=== PATIENT | female | born 1990 | race Caucasian/White ===

== ENCOUNTER 2022-03-17 20:29 | Emergency (ER) | payer MEDICARE, OTHER, MEDICAID ==
[2022-03-17] MEDS ORDERED: Ondansetron 4 MG Tab.DIS PO ONE (21:46)
[2022-03-17] MEDS ORDERED: Ketorolac 60 MG/2 ML SDV IM ONE (21:46)
== END 2022-03-17 23:00 | disposition home or self-care (01) ==
LOC: JD.ED 20:29
DX: S42.402A Unspecified fracture of lower end of left humerus, initial encounter for closed fracture (principal); Z88.2 Allergy status to sulfonamides; W18.39XA Other fall on same level, initial encounter
CPT/HCPCS: 29105; 73030; 73060; 73080; 96372; 99283; A9270; J1885; 29125; 99282

== ENCOUNTER 2022-09-29 10:28 | Day surgery (SDC) | payer MEDICARE, MEDICAID ==
[~2022-09-29 10:28] MED LIST: Acetaminophen 325 MG Tab PO SCH; Gabapentin 300 MG Cap PO SCH
[2022-09-29] MEDS ORDERED: Lidocaine 1%/Sod Bicarbonate in NS 8.4% 1 ML Syringe IDERM PRN (10:30)
[2022-09-29] MEDS ORDERED: Lactated Ringers 1,000 ML IV SCH (10:30)
[2022-09-29] MEDS ORDERED: metroNIDAZOLE/Normal Saline 500 MG in Premix Bag 1 BAG IV SCH (11:00)
[2022-09-29] MEDS ORDERED: Bupivacaine 0.5%/EPINEPHrine 1:200,000 50 ML MDV ONE (11:12)
[2022-09-29] MEDS ORDERED: Lidocaine 1% 10 ML MDV ONE (11:12)
[2022-09-29] MEDS ORDERED: Lidocaine 1% with EPINEPHrine 1:100,000 20 ML MDV ONE (11:15)
[2022-09-29] MEDS ORDERED: metroNIDAZOLE/Normal Saline 100 ML ONE (11:30)
[2022-09-29] MEDS ORDERED: Rocuronium 50 MG/5 ML Vial ONE (11:44)
[2022-09-29] MEDS ORDERED: ceFAZolin 2 GM Vial ONE (11:44)
[2022-09-29] MEDS ORDERED: Propofol 200 MG/20 ML SDV ONE (11:44)
[2022-09-29] MEDS ORDERED: fentaNYL 100 MCG/2 ML SDV ONE ×3 (11:44→14:06)
[2022-09-29] MEDS ORDERED: Ondansetron 4 MG/2 ML SDV ONE (11:44)
[2022-09-29] MEDS ORDERED: Ketorolac 30 MG/ML SDV ONE (11:44)
[2022-09-29] MEDS ORDERED: Lidocaine 1% 2 ML ONE (11:44)
[2022-09-29] MEDS ORDERED: Scopolamine 1.5 MG Transdermal Patch TRDERM SCH (12:36)
[2022-09-29] MEDS ORDERED: Midazolam 1 MG/ML 2 ML SDV ONE (12:37)
[2022-09-29] MEDS ORDERED: fentaNYL 100 MCG/2 ML SDV IVPUSH PRN (13:14)
[2022-09-29] MEDS ORDERED: Ondansetron 4 MG/2 ML SDV IVPUSH PRN (13:14)
[2022-09-29] MEDS ORDERED: HYDROmorphone 0.5 MG/0.5 ML Syringe IVPUSH PRN (13:14)
[2022-09-29] MEDS ORDERED: Dexamethasone 4 MG/ML 5 ML MDV ONE (13:18)
[2022-09-29] MEDS ORDERED: HYDROmorphone 0.5 MG/0.5 ML Syringe ONE (13:32)
[2022-09-29] MEDS ORDERED: Lactated Ringers 1,000 ML ONE (13:33)
[2022-09-29] MEDS ORDERED: Neostigmine Methylsulfate 10 MG/10 ML MDV ONE (13:54)
[2022-09-29] MEDS ORDERED: Acetaminophen/oxyCODONE 325-5 MG Tab PO PRN (15:20)
[2022-09-29] MEDS ORDERED: Sodium Chloride 0.9% 10 ML Syringe FLUSH SCH (21:00)
== END 2022-09-29 16:55 | disposition home or self-care (01) ==
LOC: JD.SDS 10:28
PROVIDERS: ATTEND Surgery
DX: K63.2 Fistula of intestine (principal); K21.9 Gastro-esophageal reflux disease without esophagitis; F32.A Depression, unspecified; I10 Essential (primary) hypertension; G43.909 Migraine, unspecified, not intractable, without status migrainosus; Z88.2 Allergy status to sulfonamides; Z79.899 Other long term (current) drug therapy; Z87.891 Personal history of nicotine dependence
CPT/HCPCS: 44650; A9270; J0690; J1100; J1170; J1885; J2250; J2405; J2704; J2710; J3010; J3490; J7120; 00840

== ENCOUNTER 2024-01-06 23:02 | Emergency (ER) | payer MEDICARE, MEDICAID ==
[2024-01-06] MEDS: Sodium Chloride 0.9% 10 ML Syringe FLUSH PRN (23:10)
[2024-01-06 23:26] LABS: BASOPHILS PERCENT AUTO 0.3 % (0.0-1.0); EOSINOPHILS ABSOLUTE AUTO 0.1 K/mm3 (0.0-0.4); EOSINOPHILS PERCENT AUTO 0.5 % (0.0-6.0); HEMATOCRIT 46.9 % (37.0-47.0); HEMOGLOBIN 15.3 gm/dl (12.0-16.0); IMMATURE GRAN ABSOLUTE AUTO 0.07 K/mm3 (0.00-0.05); IMMATURE GRAN PERCENT AUTO 0.6 % (0.0-0.4); LYMPHOCYTES ABSOLUTE AUTO 1.3 K/mm3 (1.0-4.8); LYMPHOCYTES PERCENT AUTO 12.2 % (24.0-44.0); MEAN CORPUSCULAR HEMOGLOBIN 28.6 pg (28.0-32.0); MEAN CORPUSCULAR HGB CONC 32.6 g/dl (32.0-36.0); MEAN CORPUSCULAR VOLUME 87.7 fl (83.0-99.0); MEAN PLATELET VOLUME 9.7 fl (9.4-12.3); MONOCYTES ABSOLUTE AUTO 0.4 K/mm3 (0.0-0.8); NEUTROPHILS PERCENT AUTO 82.4 % (41.0-71.0); PLATELET COUNT,PLT 406 K/mm3 (150-400); RED BLOOD CELL COUNT 5.35 M/mm3 (4.10-5.30); WHITE BLOOD CELL COUNT,WBC 10.95 K/mm3 (3.9-11.3)
[2024-01-06 23:50] LABS: A/G RATIO 0.9 (1-2); ANION GAP 11.3 (5-15); BILIRUBIN TOTAL 0.3 mg/dL (0.2-1.0); CALCIUM 9.9 mg/dL (8.5-10.1); EST CRCL DRUG DOSING (CG) 69.74 mL/min; MAGNESIUM 1.8 mg/dL (1.8-2.4); POTASSIUM,K 3.3 mEq/L (3.5-5.1); PROTEIN TOTAL,TP 8.6 g/dl (6.4-8.2)
[2024-01-06] MEDS: Ondansetron 4 MG/2 ML SDV IVPUSH ONE (23:53)
[2024-01-07] MEDS: Ketorolac 30 MG/ML SDV IVPUSH ONE (00:01)
[2024-01-07] MEDS: Diclofenac Sodium 1% Gel 100 GM Tube TOP ONE (00:11)
== END 2024-01-07 01:00 | disposition home or self-care (01) ==
LOC: JD.ED 23:02
DX: M94.0 Chondrocostal junction syndrome [Tietze] (principal); R11.2 Nausea with vomiting, unspecified; I10 Essential (primary) hypertension; Z88.2 Allergy status to sulfonamides; Z88.8 Allergy status to other drugs, medicaments and biological substances; Z79.51 Long term (current) use of inhaled steroids; Z79.899 Other long term (current) drug therapy; Z86.16 Personal history of COVID-19; Z90.710 Acquired absence of both cervix and uterus
CPT/HCPCS: 36415; 71046; 80053; 83735; 84484; 85025; 93005; 96374; 96375; 99285; A9270; J1885; J2405; J3490

== ENCOUNTER 2024-05-09 07:08 | Day surgery (SDC) | payer MEDICARE, MEDICAID ==
[~2024-05-09 07:08] MED LIST changes: -Acetaminophen 325 MG Tab PO SCH; -Gabapentin 300 MG Cap PO SCH; +HYDROmorphone 0.5 MG/0.5 ML Syringe IVPUSH PRN; +Ondansetron 4 MG/2 ML SDV IVPUSH PRN; +Sodium Chloride 0.9% 10 ML Syringe FLUSH PRN; +fentaNYL 100 MCG/2 ML SDV IVPUSH PRN
[2024-05-09] MEDS ORDERED: dexmedeTOMIDine HCl 200 MCG/2 ML SDV ONE (07:14)
[2024-05-09] MEDS ORDERED: Propofol 200 MG/20 ML SDV ONE ×3 (07:22)
[2024-05-09 08:09] LABS: ANION GAP 11.2 (5-15); POTASSIUM,K 3.2 mEq/L (3.5-5.1)
[2024-05-09] MEDS ORDERED: Labetalol 100 MG/20 ML MDV ONE (08:31)
[2024-05-09] MEDS: Lactated Ringers 1,000 ML IV SCH (08:35)
[2024-05-09] MEDS ORDERED: Sodium Chloride 0.9% 10 ML Syringe FLUSH SCH (09:00)
== END 2024-05-09 09:22 | disposition home or self-care (01) ==
LOC: JD.SDS 07:08
PROVIDERS: ATTEND Surgery
DX: K29.50 Unspecified chronic gastritis without bleeding (principal); K31.89 Other diseases of stomach and duodenum; K21.00 Gastro-esophageal reflux disease with esophagitis, without bleeding; K22.89 Other specified disease of esophagus; E66.9 Obesity, unspecified; G47.33 Obstructive sleep apnea (adult) (pediatric); I10 Essential (primary) hypertension; Z79.899 Other long term (current) drug therapy; Z88.2 Allergy status to sulfonamides; Z88.8 Allergy status to other drugs, medicaments and biological substances
CPT/HCPCS: 36415; 43239; 80051; J1921; J2704; J7120; 00731; J3490

== ENCOUNTER 2024-07-31 01:53 | Emergency (ER) | payer MEDICARE, MEDICAID ==
[2024-07-31] MEDS: Ketorolac 30 MG/ML SDV IM ONE (02:28)
== END 2024-07-31 03:34 | disposition home or self-care (01) ==
LOC: JD.ED 01:53
DX: M54.50 Low back pain, unspecified (principal); M54.6 Pain in thoracic spine; I11.9 Hypertensive heart disease without heart failure; J45.909 Unspecified asthma, uncomplicated; K21.9 Gastro-esophageal reflux disease without esophagitis; E66.9 Obesity, unspecified; Z86.16 Personal history of COVID-19; Z90.710 Acquired absence of both cervix and uterus; Z88.2 Allergy status to sulfonamides; Z88.8 Allergy status to other drugs, medicaments and biological substances; Z79.51 Long term (current) use of inhaled steroids; Z79.899 Other long term (current) drug therapy; Z68.37 Body mass index [BMI] 37.0-37.9, adult
CPT/HCPCS: 72072; 72100; 96372; 99283; J1885

== ENCOUNTER 2024-09-17 19:56 | Emergency (ER) | payer MEDICARE, MEDICAID ==
[2024-09-17] MEDS: Proparacaine 0.5% Ophth Soln 15 ML Bottle EYELF ONE (20:47)
[2024-09-17] MEDS: Fluorescein 1 MG Ophth Strip EYELF ONE (20:47)
[2024-09-17] MEDS: Erythromycin Base 0.5% Ophth Oint 1 GM Tube EYEBOTH ONE (21:25)
== END 2024-09-17 21:33 | disposition home or self-care (01) ==
LOC: JD.ED 19:56
DX: H10.32 Unspecified acute conjunctivitis, left eye (principal); I10 Essential (primary) hypertension; E66.9 Obesity, unspecified; K21.9 Gastro-esophageal reflux disease without esophagitis; J45.909 Unspecified asthma, uncomplicated; Z88.2 Allergy status to sulfonamides; Z88.8 Allergy status to other drugs, medicaments and biological substances; Z79.899 Other long term (current) drug therapy; Z68.37 Body mass index [BMI] 37.0-37.9, adult; Z90.710 Acquired absence of both cervix and uterus; Z86.16 Personal history of COVID-19
CPT/HCPCS: 99282; A9270; J3490

== ENCOUNTER 2024-11-11 12:21 | Emergency (ER) | payer MEDICARE, MEDICAID ==
[2024-11-11] MEDS: Acetaminophen 325 MG Tab PO ONE (13:44)
== END 2024-11-11 15:30 | disposition home or self-care (01) ==
LOC: JD.ED 12:21
DX: M25.562 Pain in left knee (principal); K21.9 Gastro-esophageal reflux disease without esophagitis; I10 Essential (primary) hypertension; J45.909 Unspecified asthma, uncomplicated; E66.9 Obesity, unspecified; Z88.2 Allergy status to sulfonamides; Z88.8 Allergy status to other drugs, medicaments and biological substances; Z79.899 Other long term (current) drug therapy; Z86.16 Personal history of COVID-19; Z90.710 Acquired absence of both cervix and uterus; Z68.38 Body mass index [BMI] 38.0-38.9, adult
CPT/HCPCS: 73564; 99283; A9270

== ENCOUNTER 2025-02-12 19:26 | Emergency (ER) | payer MEDICARE, MEDICAID ==
[2025-02-12] MEDS ORDERED: Sodium Chloride 0.9% 10 ML Syringe FLUSH PRN (19:55)
[2025-02-12] MEDS: Ondansetron 4 MG/2 ML SDV IVPUSH ONE (20:25)
[2025-02-12 20:36] LABS: BASOPHILS ABSOLUTE AUTO 0.0 K/mm3 (0.0-0.2); BASOPHILS PERCENT AUTO 0.4 % (0.0-1.0); EOSINOPHILS ABSOLUTE AUTO 0.0 K/mm3 (0.0-0.4); EOSINOPHILS PERCENT AUTO 0.3 % (0.0-6.0); IMMATURE GRAN ABSOLUTE AUTO 0.06 K/mm3 (0.00-0.05); IMMATURE GRAN PERCENT AUTO 0.9 % (0.0-0.4); LYMPHOCYTES ABSOLUTE AUTO 1.4 K/mm3 (1.0-4.8); LYMPHOCYTES PERCENT AUTO 20.1 % (24.0-44.0); MEAN PLATELET VOLUME 10.7 fl (9.4-12.3); MONOCYTES ABSOLUTE AUTO 0.6 K/mm3 (0.0-0.8); MONOCYTES PERCENT AUTO 9.3 % (0.0-8.0); NEUTROPHILS ABSOLUTE AUTO 4.8 K/mm3 (1.8-7.7); NEUTROPHILS PERCENT AUTO 69.0 % (41.0-71.0); NRBC ABSOLUTE 0.00 (0.00-0.02); NRBC PERCENT 0.0 % (0.0-0.2); PLATELET COUNT,PLT 340 K/mm3 (150-400); RED BLOOD CELL COUNT 5.31 M/mm3 (4.10-5.30); WHITE BLOOD CELL COUNT,WBC 6.88 K/mm3 (3.9-11.3)
[2025-02-12 20:37] LABS: APPEARANCE,URINE CLEAR (Clear); GLUCOSE,URINE NEGATIVE (Negative); OCCULT BLOOD,URINE NEGATIVE (Negative)
[2025-02-12 21:03] LABS: A/G RATIO 0.8 (1-2); ALANINE AMINOTRANSFERASE,ALT 35.0 U/L (14-59); ASPARTATE AMNIOTRANSFERASE,AST 18.0 U/L (15-37); BILIRUBIN TOTAL 0.3 mg/dL (0.2-1.0); BLOOD UREA NITROGEN,BUN 7.0 mg/dL (7-18); CARBON DIOXIDE,CO2 27.0 mEq/L (21-32); CHLORIDE,CL 104.0 mEq/L (98-107); CREATININE 1.0 mg/dL (0.55-1.02); EST CRCL DRUG DOSING (CG) 77.81 mL/min; ESTIMATED GFR 76.0 mL/min (>60); GLUCOSE RANDOM 119.0 mg/dL (70-99); POTASSIUM,K 3.3 mEq/L (3.5-5.1); PROTEIN TOTAL,TP 8.1 g/dl (6.4-8.2); SODIUM,NA 141.0 mEq/L (136-145)
== END 2025-02-12 21:34 | disposition home or self-care (01) ==
LOC: JD.ED 19:26
DX: A08.4 Viral intestinal infection, unspecified (principal); I10 Essential (primary) hypertension; J45.909 Unspecified asthma, uncomplicated; K21.9 Gastro-esophageal reflux disease without esophagitis; Z90.710 Acquired absence of both cervix and uterus; Z86.16 Personal history of COVID-19; Z88.2 Allergy status to sulfonamides; Z88.8 Allergy status to other drugs, medicaments and biological substances; Z79.51 Long term (current) use of inhaled steroids; Z79.899 Other long term (current) drug therapy
CPT/HCPCS: 36415; 80053; 81001; 85025; 86140; 96361; 96374; 99284; J2405; J7030

== ENCOUNTER 2025-04-12 08:43 | Emergency (ER) | payer MEDICARE, MEDICAID ==
[2025-04-12] MEDS: Sodium Chloride 0.9% 10 ML Syringe FLUSH PRN (09:52)
[2025-04-12 09:55] LABS: BASOPHILS ABSOLUTE AUTO 0.0 K/mm3 (0.0-0.2); BASOPHILS PERCENT AUTO 0.7 % (0.0-1.0); EOSINOPHILS ABSOLUTE AUTO 0.1 K/mm3 (0.0-0.4); EOSINOPHILS PERCENT AUTO 1.8 % (0.0-6.0); IMMATURE GRAN ABSOLUTE AUTO 0.04 K/mm3 (0.00-0.05); IMMATURE GRAN PERCENT AUTO 0.7 % (0.0-0.4); LYMPHOCYTES ABSOLUTE AUTO 1.9 K/mm3 (1.0-4.8); LYMPHOCYTES PERCENT AUTO 30.7 % (24.0-44.0); MEAN PLATELET VOLUME 10.8 fl (9.4-12.3); MONOCYTES ABSOLUTE AUTO 0.5 K/mm3 (0.0-0.8); MONOCYTES PERCENT AUTO 7.8 % (0.0-8.0); NEUTROPHILS ABSOLUTE AUTO 3.5 K/mm3 (1.8-7.7); NEUTROPHILS PERCENT AUTO 58.3 % (41.0-71.0); NRBC ABSOLUTE 0.00 (0.00-0.02); NRBC PERCENT 0.0 % (0.0-0.2); PLATELET COUNT,PLT 313 K/mm3 (150-400); RED BLOOD CELL COUNT 4.98 M/mm3 (4.10-5.30); WHITE BLOOD CELL COUNT,WBC 6.03 K/mm3 (3.9-11.3)
[2025-04-12 10:05] LABS: BUPRENORPHINE SCREEN,URINE NEGATIVE (CUTOFF=10); METHADONE SCREEN, URINE NEGATIVE (CUTOFF=200); METHAMPHETAMINES SCREEN, URINE NEGATIVE (CUTOFF=500); OXYCODONE SCREEN,URINE NEGATIVE (CUT0FF=100); THC SCREEN,URINE 20 NG/ML NEGATIVE (CUTOFF=50)
[2025-04-12 10:06] LABS: AMPHETAMINES SCREEN, URINE NEGATIVE (CUTOFF=500)
[2025-04-12] MEDS: Ondansetron 4 MG/2 ML SDV IVPUSH ONE (10:24)
[2025-04-12 10:35] LABS: A/G RATIO 0.8 (1-2); ALANINE AMINOTRANSFERASE,ALT 42.0 U/L (14-59); ASPARTATE AMNIOTRANSFERASE,AST 19.0 U/L (15-37); BILIRUBIN TOTAL 0.3 mg/dL (0.2-1.0); BLOOD UREA NITROGEN,BUN 11.0 mg/dL (7-18); CARBON DIOXIDE,CO2 27.0 mEq/L (21-32); CHLORIDE,CL 106.0 mEq/L (98-107); CREATININE 0.8 mg/dL (0.55-1.02); EST CRCL DRUG DOSING (CG) 86.37 mL/min; ESTIMATED GFR 100.0 mL/min (>60); GLUCOSE RANDOM 104.0 mg/dL (70-99); POTASSIUM,K 4.0 mEq/L (3.5-5.1); PROTEIN TOTAL,TP 7.1 g/dl (6.4-8.2); SODIUM,NA 140.0 mEq/L (136-145)
[2025-04-12] MEDS: Gadobenate Dimeglumine 529 MG/ML 20 ML SDV IVPUSH ONE (12:39)
[2025-04-12] MEDS: Sodium Chloride 0.9% 10 ML Syringe FLUSH SCH (12:40)
== END 2025-04-12 15:35 | disposition home or self-care (01) ==
LOC: JD.ED 08:43
DX: R20.2 Paresthesia of skin (principal); I10 Essential (primary) hypertension; J45.909 Unspecified asthma, uncomplicated; K21.9 Gastro-esophageal reflux disease without esophagitis; E66.9 Obesity, unspecified; Z68.39 Body mass index [BMI] 39.0-39.9, adult; Z86.16 Personal history of COVID-19; Z90.710 Acquired absence of both cervix and uterus; Z88.2 Allergy status to sulfonamides; Z88.8 Allergy status to other drugs, medicaments and biological substances; Z79.51 Long term (current) use of inhaled steroids; Z79.899 Other long term (current) drug therapy
CPT/HCPCS: 36415; 70553; 80053; 80306; 83735; 84703; 85025; 93005; 96361; 96374; 99284; A9577; J2405; J7030

== ENCOUNTER 2025-05-25 23:21 | Emergency (ER) | payer MEDICARE, MEDICAID ==
[2025-05-25] MEDS ORDERED: Sodium Chloride 0.9% 10 ML Syringe FLUSH PRN (23:33)
[2025-05-25 23:55] LABS: BASOPHILS ABSOLUTE AUTO 0.0 K/mm3 (0.0-0.2); BASOPHILS PERCENT AUTO 0.5 % (0.0-1.0); EOSINOPHILS ABSOLUTE AUTO 0.1 K/mm3 (0.0-0.4); EOSINOPHILS PERCENT AUTO 1.6 % (0.0-6.0); IMMATURE GRAN ABSOLUTE AUTO 0.05 K/mm3 (0.00-0.05); IMMATURE GRAN PERCENT AUTO 0.8 % (0.0-0.4); LYMPHOCYTES ABSOLUTE AUTO 2.2 K/mm3 (1.0-4.8); LYMPHOCYTES PERCENT AUTO 34.5 % (24.0-44.0); MEAN PLATELET VOLUME 10.3 fl (9.4-12.3); MONOCYTES ABSOLUTE AUTO 0.4 K/mm3 (0.0-0.8); MONOCYTES PERCENT AUTO 6.3 % (0.0-8.0); NEUTROPHILS ABSOLUTE AUTO 3.5 K/mm3 (1.8-7.7); NEUTROPHILS PERCENT AUTO 56.3 % (41.0-71.0); NRBC ABSOLUTE 0.00 (0.00-0.02); NRBC PERCENT 0.0 % (0.0-0.2); PLATELET COUNT,PLT 221 K/mm3 (150-400); RED BLOOD CELL COUNT 4.38 M/mm3 (4.10-5.30); WHITE BLOOD CELL COUNT,WBC 6.23 K/mm3 (3.9-11.3)
[2025-05-25 23:57] LABS: APPEARANCE,URINE CLEAR (Clear); GLUCOSE,URINE NEGATIVE (Negative); OCCULT BLOOD,URINE NEGATIVE (Negative)
[2025-05-26 00:20] LABS: A/G RATIO 0.9 (1-2); ALANINE AMINOTRANSFERASE,ALT 43.0 U/L (14-59); ASPARTATE AMNIOTRANSFERASE,AST 25.0 U/L (15-37); BILIRUBIN TOTAL 0.3 mg/dL (0.2-1.0); BLOOD UREA NITROGEN,BUN 4.0 mg/dL (7-18); CARBON DIOXIDE,CO2 31.0 mEq/L (21-32); CHLORIDE,CL 108.0 mEq/L (98-107); CREATININE 0.7 mg/dL (0.55-1.02); EST CRCL DRUG DOSING (CG) 98.71 mL/min; ESTIMATED GFR 117.0 mL/min (>60); GLUCOSE RANDOM 114.0 mg/dL (70-99); POTASSIUM,K 3.5 mEq/L (3.5-5.1); PROTEIN TOTAL,TP 6.7 g/dl (6.4-8.2); SODIUM,NA 141.0 mEq/L (136-145)
[2025-05-26 00:22] LABS: LACTIC ACID 0.8 mmol/L (0.4-2.0)
[2025-05-26] MEDS: Ondansetron 4 MG Tab.DIS PO ONE (01:13)
== END 2025-05-26 02:10 | disposition home or self-care (01) ==
LOC: JD.ED 23:21
DX: R11.0 Nausea (principal); I10 Essential (primary) hypertension; K21.9 Gastro-esophageal reflux disease without esophagitis; E66.9 Obesity, unspecified; J45.909 Unspecified asthma, uncomplicated; Z79.899 Other long term (current) drug therapy; Z79.51 Long term (current) use of inhaled steroids; Z86.16 Personal history of COVID-19; Z88.8 Allergy status to other drugs, medicaments and biological substances; Z88.2 Allergy status to sulfonamides; Z90.710 Acquired absence of both cervix and uterus
CPT/HCPCS: 36415; 80053; 81003; 83605; 83690; 84703; 85025; 99284; A9270

== ENCOUNTER 2025-06-18 23:10 | Emergency (ER) | payer MEDICARE, MEDICAID ==
[2025-06-18] MEDS ORDERED: cefTRIAXone 1 GM, Lidocaine 1% 2.1 ML IM ONE (23:43)
[2025-06-19] MEDS: Ondansetron 4 MG/2 ML SDV ONE (02:39)
[2025-06-19] MEDS: Ondansetron 4 MG/2 ML SDV IVPUSH ONE ×2 (02:39→02:44)
[2025-06-19] MEDS: cefTRIAXone 1 GM in Water For Injection, Sterile 10 ML IVPUSH ONE (02:44)
== END 2025-06-19 01:45 | disposition home or self-care (01) ==
LOC: JD.ED 23:10
DX: J45.21 Mild intermittent asthma with (acute) exacerbation (principal); J18.9 Pneumonia, unspecified organism; E66.9 Obesity, unspecified; K21.9 Gastro-esophageal reflux disease without esophagitis; Z88.8 Allergy status to other drugs, medicaments and biological substances; Z79.899 Other long term (current) drug therapy; Z86.16 Personal history of COVID-19; Z90.710 Acquired absence of both cervix and uterus; Z68.41 Body mass index [BMI] 40.0-44.9, adult
CPT/HCPCS: 71045; 94640; 96365; 96375; 99283; A9270; J0456; J0696; J2405; J7050; J8540; 99284

== ENCOUNTER 2025-06-19 23:09 | Emergency (ER) | payer MEDICARE, MEDICAID ==
[2025-06-20 00:17] LABS: BASOPHILS ABSOLUTE AUTO 0.0 K/mm3 (0.0-0.2); BASOPHILS PERCENT AUTO 0.2 % (0.0-1.0); EOSINOPHILS ABSOLUTE AUTO 0.0 K/mm3 (0.0-0.4); EOSINOPHILS PERCENT AUTO 0.0 % (0.0-6.0); IMMATURE GRAN ABSOLUTE AUTO 0.06 K/mm3 (0.00-0.05); IMMATURE GRAN PERCENT AUTO 0.7 % (0.0-0.4); LYMPHOCYTES ABSOLUTE AUTO 1.0 K/mm3 (1.0-4.8); LYMPHOCYTES PERCENT AUTO 12.0 % (24.0-44.0); MEAN PLATELET VOLUME 10.5 fl (9.4-12.3); MONOCYTES ABSOLUTE AUTO 0.9 K/mm3 (0.0-0.8); MONOCYTES PERCENT AUTO 10.3 % (0.0-8.0); NEUTROPHILS ABSOLUTE AUTO 6.4 K/mm3 (1.8-7.7); NEUTROPHILS PERCENT AUTO 76.8 % (41.0-71.0); NRBC ABSOLUTE 0.00 (0.00-0.02); NRBC PERCENT 0.0 % (0.0-0.2); PLATELET COUNT,PLT 296 K/mm3 (150-400); RED BLOOD CELL COUNT 4.85 M/mm3 (4.10-5.30); WHITE BLOOD CELL COUNT,WBC 8.27 K/mm3 (3.9-11.3)
[2025-06-20] MEDS: Ondansetron 4 MG/2 ML SDV IV STA (00:17)
[2025-06-20] MEDS: cefTRIAXone 1 GM in Water For Injection, Sterile 10 ML IVPUSH ONE (00:17)
[2025-06-20] MEDS: Dexamethasone 4 MG/ML SDV IVPUSH STA (00:17)
[2025-06-20 00:35] LABS: A/G RATIO 0.8 (1-2); ALANINE AMINOTRANSFERASE,ALT 30.0 U/L (14-59); ASPARTATE AMNIOTRANSFERASE,AST 16.0 U/L (15-37); BILIRUBIN TOTAL 0.2 mg/dL (0.2-1.0); BLOOD UREA NITROGEN,BUN 7.0 mg/dL (7-18); CARBON DIOXIDE,CO2 31.0 mEq/L (21-32); CHLORIDE,CL 102.0 mEq/L (98-107); CREATININE 0.9 mg/dL (0.55-1.02); EST CRCL DRUG DOSING (CG) 76.77 mL/min; ESTIMATED GFR 87.0 mL/min (>60); GLUCOSE RANDOM 104.0 mg/dL (70-99); POTASSIUM,K 3.9 mEq/L (3.5-5.1); PROTEIN TOTAL,TP 7.7 g/dl (6.4-8.2); SODIUM,NA 140.0 mEq/L (136-145)
[2025-06-20] MEDS: diphenhydrAMINE 50 MG/ML SDV IVPUSH ONE (00:56)
== END 2025-06-20 02:00 | disposition home or self-care (01) ==
LOC: JD.ED 23:09
DX: J45.901 Unspecified asthma with (acute) exacerbation (principal); J18.9 Pneumonia, unspecified organism; R11.10 Vomiting, unspecified; I10 Essential (primary) hypertension; K21.9 Gastro-esophageal reflux disease without esophagitis; E66.9 Obesity, unspecified; Z86.16 Personal history of COVID-19; Z90.710 Acquired absence of both cervix and uterus; Z79.899 Other long term (current) drug therapy; Z88.2 Allergy status to sulfonamides; Z88.8 Allergy status to other drugs, medicaments and biological substances
CPT/HCPCS: 36415; 80053; 83735; 85025; 94640; 96365; 96375; 99284; A9270; J0456; J0696; J1100; J1200; J2405; J7030; J7050

== ENCOUNTER 2025-06-26 22:07 | Emergency (ER) | payer MEDICARE, MEDICAID ==
[2025-06-26] MEDS: Amoxicillin/Clavulanate K 875-125 MG Tab PO ONE (23:04)
== END 2025-06-26 23:06 | disposition home or self-care (01) ==
LOC: JD.ED 22:07
DX: H66.92 Otitis media, unspecified, left ear (principal); I10 Essential (primary) hypertension; K21.9 Gastro-esophageal reflux disease without esophagitis; Z86.16 Personal history of COVID-19; Z88.2 Allergy status to sulfonamides; Z88.8 Allergy status to other drugs, medicaments and biological substances; Z79.899 Other long term (current) drug therapy
CPT/HCPCS: 99282; A9270